=== PATIENT | female | born 1990 | race Caucasian/White ===

== ENCOUNTER 2021-12-02 16:41 | Outpatient (REF) | payer OTHER, SELFPAY | END 2021-12-02 16:42 | disposition home or self-care (01) | LOC: HO.LNP 16:41 | PROVIDERS: Visit Provider Internal Medicine | DX: N30.90 Cystitis, unspecified without hematuria (principal) | CPT/HCPCS: 87086; 87088; 87186 ==

== ENCOUNTER 2022-02-20 18:59 | Emergency (ER) | payer OTHER, SELFPAY ==
--- NOTE | ~2022-02-20 | XR_ITS ---
EXAMINATION: XR CHEST CLINICAL INFORMATION: Chest pain COMPARISON: CT chest 10/12/2011 TECHNIQUE: Frontal view of the chest was obtained. FINDINGS: No significant abnormality is noted involving the heart, lungs, mediastinum, bony thorax or soft tissues. XR/XR chest 1V IMPRESSION: Unremarkable examination.
[2022-02-20 19:15] VITALS: BP 126/82; BP 131/80; PULSE 107; PULSE 90; RESP 22; TEMP 36.8; O2SAT 99; BMI 23.3
[2022-02-20 19:21] VITALS: BP 131/80; PULSE 97; RESP 17; TEMP 36.8; O2SAT 99
--- NOTE | 2022-02-20 19:26 | ECG_ITS ---
Test Reason : cp Blood Pressure : / mmHG Vent. Rate : 088 BPM Atrial Rate : 088 BPM P-R Int : 144 ms QRS Dur : 090 ms QT Int : 380 ms P-R-T Axes : 063 062 062 degrees QTc Int : 459 ms Normal sinus rhythm Normal ECG When compared with ECG of 12-OCT-2011 20:59, Vent. rate has decreased BY 45 BPM Referred By: Elbert Ramos Electronically Signed By:ROOPA GASTON MD
--- NOTE | 2022-02-20 19:28 | ED_ITS ---
HPI - General Adult General Chief complaint: Dizziness Stated complaint: ANXIETY Time Seen by Provider: 02/20/22 19:20 Source: patient and EMS Mode of arrival: EMS Limitations: no limitations History of Present Illness HPI narrative: 31-year-old female history of anxiety presented for evaluation of chest pain. Patient was shopping while walking around in the store started feel lightheadedness, left-sided chest tightness, difficulty breathing, and palpitation. Symptoms started suddenly, lasted for about 30 minutes, no radiation of the chest tightness, no recent travel, no lower extremity swelling or tenderness. Patient had episode of anxiety in the past presented with similar symptoms but shorter duration, patient feels stressed out due to a divorce process she is going through now, patient declined SI or HI or hallucination. Related Data Previous Rx's Medication Instructions Recorded escitalopram oxalate 10 mg tablet 10 mg PO DAILY #90 tabs 11/26/20 nitrofurantoin 100 mg PO Q12H 3 days #6 caps 12/06/21 monohydrate/macrocrystals 100 mg capsule (Macrobid) Allergies Allergy/AdvReac Type Severity Reaction Status Date / Time No Known Allergies Allergy Verified 12/02/21 10:27 Review of Systems Review of Systems: All other systems are reviewed and are negative Constitutional: Reports as per HPI and Reports no additional constitutional complaints Eyes: Reports as per HPI and Reports no additional eye complaints Reports system reviewed and no additional complaints, except as documented Cardiovascular: Reports as per HPI and Reports no additional cardiovascular complaints Respiratory: Reports as per HPI and Reports no additional respiratory complaints Gastrointestinal: Reports as per HPI and Reports no additional gastrointestinal complaints Genitourinary: Reports no additional female genitourinary complaints Musculoskeletal: Reports no additional musculoskeletal complaints Skin/Breast: Reports system reviewed and no additional complaints, except as docu Psychiatric: Reports no additional psychiatric complaints Endocrine: Reports no additional endocrine complaints Hematologic/Lymphatic: Reports no additional hematologic/lymphatic complaints Allergic/Immunologic: Reports no additional allergic/immunologic complaints Reports system reviewed and no additional complaints, except as documented and Reports Abnormal speech present [facility] Past Medical History Medical History ADHD, predominantly inattentive type Generalized anxiety disorder Hx of iron deficiency anemia 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 Surgical History No pertinent past surgical history Family History Family History Father Substance use disorder Daughter ADHD Social History Social History Housing: House Alcohol intake: current Alcohol intake frequency: a few times a month Patient Tobacco Use Status: Former Tobacco user Years Smoked: 15 yrs Second Hand Smoke Exposure: No Use of substances other than those prescribed or required for medical reasons: No Advance Directives: No Patient : No service: No Current occupational status: employed Physical Exam ED Vital Signs: Vital Signs - 24 hr 02/20/22 19:15 02/20/22 19:21 02/20/22 23:03 Temperature 98.2 F 98.2 F Pulse Rate 90 97 73 Respiratory Rate 22 H 17 14 Blood Pressure 131/80 131/80 110/67 Pulse Oximetry 99 99 98 Oxygen Delivery Method Room Air Room Air Room Air BMI result Body Mass Index 23.3 Vital signs have been reviewed as appeared to be correct. Blood pressure normal. Heart rate normal. Respiration rate normal. Temperature normal. Oxygen saturation normal. Appearance: Alert. Oriented X3. No acute distress. Anxious. Head: Normal external exam. Normocephalic. Atraumatic. No Robles signs noted. No raccoon eyes noted Eyes: PERRLA. EOMI. Conjunctiva and sclera normal. Eyelids normal. ENT: TM's Normal. Pharynx normal. Uvula midline. Moist mucous membranes. No trismus noted. No drooling noted. No muffled voice noted. Neck: Normal inspection. Neck supple. FROM. No adenopathy. Thyroid Normal. No meningeal signs. No neck mass noted. CVS: Normal heart rate and rhythm. Heart sound normal. No murmurs noted. Pulses normal throughout. Respiratory: No respiratory distress. Painless inspiration. Breath sounds normal. No wheezes/rales/rhonchi noted. Chest nontender. No accessory muscle usage noted or decreased air movement noted. Abdomen: Soft and nontender. Bowel sounds normal in all 4 quadrants. No distention noted. No organomegaly noted. No visible injury noted. Back: No CVA tenderness. Full range of motion noted. Skin: Skin warm and dry. Normal skin color. Normal skin turgor. No rashes/lesions/lacerations noted. Extremities: No lower extremity edema. Extremities exhibit normal range of motion. Extremities nontender. Neuro: Oriented X 3. Cranial nerve exam: II-XII are grossly intact No motor deficit. No sensory deficit. Reflexes normal. Course Course Course Narrative: 31-year-old female with history of anxiety presented with feeling palpitation and chest tightness, patient has unremarkable exam, patient declined SI or HI, patient with HEART score of 0, patient with low risk of DVT or PE with negative D-dimer. Patient was instructed to follow-up with her PCP was already prescribed her Lexapro the patient has not used it yet. Medical Decision Making Lab Data Lab results reviewed: Yes I reviewed the patient's lab results. Result diagrams: 02/20/22 19:34 02/20/22 19:34 Labs: Lab Results 02/20/22 02/20/22 02/20/22 Range/Units 19:34 19:34 19:34 WBC 6.1 (4.8-10.8) X10*3/uL RBC 4.36 (4.20-5.50) X10*6/uL Hgb 12.1 (12.0-16.0) g/dl Hct 36.6 L (37.0-47.0) % MCV 83.9 (80.0-98.0) fL MCH 27.8 (27.0-33.0) pg MCHC 33.1 (31.0-35.0) g/dl RDW 13.2 (11.0-16.0) % Plt Count 330 (160-400) X10*3/uL MPV 9.7 (9.4-12.3) fL Immature Gran % (Auto) 0.3 (0.0-0.4) % Neut % (Auto) 65.4 (45-73) % Lymph % (Auto) 24.9 (20-40) % [place] % (Auto) 6.9 (2-11) % Eos % (Auto) 1.8 (0-4) % Baso % (Auto) 0.7 (0-2) % Lymph # (Auto) 1.5 (1.2-4.9) X10*3/uL [place] # (Auto) 0.4 (0.1-1.2) X10*3/uL Eos # (Auto) 0.1 (0.0-0.4) X10*3/uL Baso # (Auto) 0.0 (0.0-0.2) X10*3/uL Abs Immat Gran (auto) 0.02 (0.00-0.03) X10*3/uL Absolute Neuts (auto) 4.0 (2.0-8.3) x10*3/uL Absolute Nucleated RBC 0.000 (0.0-0.012) X10*3/uL Nucleated RBC % (auto) 0.0 (0.0-0.2) /100WBC D-Dimer High Sensitivty NG/ML Sodium 142 (135-145) mmol/L Potassium 3.8 (3.3-5.1) mmol/L Chloride 106 (96-108) mmol/L Carbon Dioxide 24 (22-29) mmol/L Anion Gap 16 (12-20) BUN 10 (9-16) mg/dL Creatinine 0.77 (0.5-1.4) mg/dL Estim Creat Clear Calc 94.4 Estimated GFR > 60 Random Glucose 92 (60-115) mg/dL Calcium 9.7 (8.4-10.2) mg/dL Total Bilirubin 0.4 (0.0-1.0) mg/dL Direct Bilirubin 0.2 (0.0-0.5) mg/dL AST 13 (5-31) U/L ALT 9 (0-31) U/L Alkaline Phosphatase 55 (39-117) U/L Troponin I High Sens < 3.5 (<3.5-17.0) ng/L Total Protein 7.1 (6.5-8.0) g/dL Albumin 4.6 (3.5-5.0) g/dL Lipase 34 (8-78) U/L Urine Color Urine Appearance Urine pH (5.0-9.0) Ur Specific [place] (1.005-1.025) Urine Protein (Neg-Trace) mg/dL Urine Glucose (UA) (Negative) mg/dL Urine Ketones (Negative) mg/dL Urine Blood (Negative) Urine Nitrite (Negative) Ur Leukocyte Esterase (Negative) Urine Test (NEGATIVE) 02/20/22 02/20/22 02/20/22 Range/Units 19:34 22:30 22:30 WBC (4.8-10.8) X10*3/uL RBC (4.20-5.50) X10*6/uL Hgb (12.0-16.0) g/dl Hct (37.0-47.0) % MCV (80.0-98.0) fL MCH (27.0-33.0) pg MCHC (31.0-35.0) g/dl RDW (11.0-16.0) % Plt Count (160-400) X10*3/uL MPV (9.4-12.3) fL Immature Gran % (Auto) (0.0-0.4) % Neut % (Auto) (45-73) % Lymph % (Auto) (20-40) % [place] % (Auto) (2-11) % Eos % (Auto) (0-4) % Baso % (Auto) (0-2) % Lymph # (Auto) (1.2-4.9) X10*3/uL [place] # (Auto) (0.1-1.2) X10*3/uL Eos # (Auto) (0.0-0.4) X10*3/uL Baso # (Auto) (0.0-0.2) X10*3/uL Abs Immat Gran (auto) (0.00-0.03) X10*3/uL Absolute Neuts (auto) (2.0-8.3) x10*3/uL Absolute Nucleated RBC (0.0-0.012) X10*3/uL Nucleated RBC % (auto) (0.0-0.2) /100WBC D-Dimer High Sensitivty < 150 NG/ML Sodium (135-145) mmol/L Potassium (3.3-5.1) mmol/L Chloride (96-108) mmol/L Carbon Dioxide (22-29) mmol/L Anion Gap (12-20) BUN (9-16) mg/dL Creatinine (0.5-1.4) mg/dL Estim Creat Clear Calc Estimated GFR Random Glucose (60-115) mg/dL Calcium (8.4-10.2) mg/dL Total Bilirubin (0.0-1.0) mg/dL Direct Bilirubin (0.0-0.5) mg/dL AST (5-31) U/L ALT (0-31) U/L Alkaline Phosphatase (39-117) U/L Troponin I High Sens < 3.5 (<3.5-17.0) ng/L Total Protein (6.5-8.0) g/dL Albumin (3.5-5.0) g/dL Lipase (8-78) U/L Urine Color Yellow Urine Appearance Clear Urine pH 6.0 (5.0-9.0) Ur Specific [place] <= 1.005 (1.005-1.025) Urine Protein Negative (Neg-Trace) mg/dL Urine Glucose (UA) Negative (Negative) mg/dL Urine Ketones 40 (Negative) mg/dL Urine Blood Small (1+) H (Negative) Urine Nitrite Negative (Negative) Ur Leukocyte Esterase Negative (Negative) Urine Test (NEGATIVE) 02/20/22 Range/Units 22:30 WBC (4.8-10.8) X10*3/uL RBC (4.20-5.50) X10*6/uL Hgb (12.0-16.0) g/dl Hct (37.0-47.0) % MCV (80.0-98.0) fL MCH (27.0-33.0) pg MCHC (31.0-35.0) g/dl RDW (11.0-16.0) % Plt Count (160-400) X10*3/uL MPV (9.4-12.3) fL Immature Gran % (Auto) (0.0-0.4) % Neut % (Auto) (45-73) % Lymph % (Auto) (20-40) % [place] % (Auto) (2-11) % Eos % (Auto) (0-4) % Baso % (Auto) (0-2) % Lymph # (Auto) (1.2-4.9) X10*3/uL [place] # (Auto) (0.1-1.2) X10*3/uL Eos # (Auto) (0.0-0.4) X10*3/uL Baso # (Auto) (0.0-0.2) X10*3/uL Abs Immat Gran (auto) (0.00-0.03) X10*3/uL Absolute Neuts (auto) (2.0-8.3) x10*3/uL Absolute Nucleated RBC (0.0-0.012) X10*3/uL Nucleated RBC % (auto) (0.0-0.2) /100WBC D-Dimer High Sensitivty NG/ML Sodium (135-145) mmol/L Potassium (3.3-5.1) mmol/L Chloride (96-108) mmol/L Carbon Dioxide (22-29) mmol/L Anion Gap (12-20) BUN (9-16) mg/dL Creatinine (0.5-1.4) mg/dL Estim Creat Clear Calc Estimated GFR Random Glucose (60-115) mg/dL Calcium (8.4-10.2) mg/dL Total Bilirubin (0.0-1.0) mg/dL Direct Bilirubin (0.0-0.5) mg/dL AST (5-31) U/L ALT (0-31) U/L Alkaline Phosphatase (39-117) U/L Troponin I High Sens (<3.5-17.0) ng/L Total Protein (6.5-8.0) g/dL Albumin (3.5-5.0) g/dL Lipase (8-78) U/L Urine Color Urine Appearance Urine pH (5.0-9.0) Ur Specific [place] (1.005-1.025) Urine Protein (Neg-Trace) mg/dL Urine Glucose (UA) (Negative) mg/dL Urine Ketones (Negative) mg/dL Urine Blood (Negative) Urine Nitrite (Negative) Ur Leukocyte Esterase (Negative) Urine Test NEGATIVE (NEGATIVE) Imaging Data Chest x-ray: Attestation: I personally reviewed and interpreted this imaging study as follows: Radiologist's impression: Unremarkable examination ECG Data Attestation: I personally reviewed and interpreted this ECG as follows: Interpretation: Normal sinus rhythm at 88 beats per minute, normal intervals, no ST-T changes. Discharge Plan Discharge Clinical Impression: Anxiety Patient Disposition: Home, Self-Care Instructions: Anxiety (ED) Prescriptions: No Action escitalopram oxalate 10 mg tablet 10 mg PO DAILY Qty: 90 0RF nitrofurantoin monohyd/m-cryst [Macrobid] 100 mg capsule 100 mg PO Q12H 3 Days Qty: 6 0RF Rx Instructions: must administer with a meal/food Referrals: Afsaneh Coughlin MD [Primary Care Provider] -
[2022-02-20 19:48] LABS: MANUAL DIFF FLAG NO
[2022-02-20 19:49] LABS: Basophils Percent Auto 0.7 % (0-2); Eosinophils Absolute Auto 0.1 X10*3/uL (0.0-0.4); Eosinophils Percent Auto 1.8 % (0-4); Hematocrit 36.6 % (37.0-47.0); Hemoglobin 12.1 g/dl (12.0-16.0); Imm Gran Abs Auto 0.02 X10*3/uL (0.00-0.03); Imm Gran Pct Auto 0.3 % (0.0-0.4); Lymphocytes Absolute Auto 1.5 X10*3/uL (1.2-4.9); Lymphocytes Percent Auto 24.9 % (20-40); Mean Corpuscular HGB Conc 33.1 g/dl (31.0-35.0); Mean Corpuscular Hemoglobin 27.8 pg (27.0-33.0); Mean Corpuscular Volume 83.9 fL (80.0-98.0); Mean Platelet Volume 9.7 fL (9.4-12.3); Monocytes Absolute Auto 0.4 X10*3/uL (0.1-1.2); Monocytes Percent Auto 6.9 % (2-11); Neutrophils Percent Auto 65.4 % (45-73); Platelet Count 330 X10*3/uL (160-400); Red Blood Count 4.36 X10*6/uL (4.20-5.50); Red Cell Distribution Width 13.2 % (11.0-16.0); White Blood Count 6.1 X10*3/uL (4.8-10.8)
[2022-02-20] MEDS: 0.9 % Sodium Chloride 1,000 ML 999 ML IV (20:02)
[2022-02-20 20:10] LABS: D Dimer High Sensitivity < 150 NG/ML
[2022-02-20 20:11] LABS: Alanine Aminotransferase 9 U/L (0-31); Albumin Level 4.6 g/dL (3.5-5.0); Alkaline Phosphatase 55 U/L (39-117); Anion Gap 16 (12-20); Aspartate Amino Transferase 13 U/L (5-31); Bilirubin Direct 0.2 mg/dL (0.0-0.5); Bilirubin Total 0.4 mg/dL (0.0-1.0); Blood Urea Nitrogen 10 mg/dL (9-16); Calcium 9.7 mg/dL (8.4-10.2); Carbon Dioxide 24 mmol/L (22-29); Chloride 106 mmol/L (96-108); Creatinine Clr Calc Pharmacy 94.4; Estimated Glomerular Filt Rate > 60; Glucose Random 92 mg/dL (60-115); Lipase 34 U/L (8-78); Potassium 3.8 mmol/L (3.3-5.1); Sodium 142 mmol/L (135-145); Total Protein 7.1 g/dL (6.5-8.0)
[2022-02-20 20:17] LABS: Troponin-I High Sensitivity < 3.5 ng/L (<3.5-17.0)
[2022-02-20 22:39] LABS: Appearance Urine Clear; Color Urine Yellow; Glucose Urine UA Negative (Negative); Leukocyte Esterase Urine Negative (Negative); Nitrite Urine Negative (Negative); Specific Gravity - Urine <= 1.005 (1.005-1.025); UMIC TRIGGER UACC YES; Urine Blood Small (1+) (Negative); Urine Ketones 40 mg/dL (Negative); Urine Protein Negative (Neg-Trace)
[2022-02-20 22:41] LABS: UPreg QC Valid YES; Urine Pregnancy NEGATIVE (NEGATIVE)
[2022-02-20 22:57] LABS: Troponin-I High Sensitivity < 3.5 ng/L (<3.5-17.0)
[2022-02-20 23:03] VITALS: BP 110/67; PULSE 73; RESP 14; O2SAT 98
[2022-02-20 23:07] LABS: Bacteria Urine None Seen (None Seen); Hyaline Casts Urine 0-2 /LPF (0-2); RBC Urine 0-2 /HPF (0-2); WBC Urine 0-5 /HPF (0-5)
== END 2022-02-20 23:21 | disposition home or self-care (01) ==
PROVIDERS: Emergency Provider Emergency Medicine; PCP Internal Medicine
DX: F41.9 Anxiety disorder, unspecified (principal); Z72.89 Other problems related to lifestyle; Z63.5 Disruption of family by separation and divorce
CPT/HCPCS: 36415; 71045; 80048; 80076; 81001; 81025; 83690; 84484; 85025; 85379; 93005; 96360; 96361; 99284; 99285

== ENCOUNTER 2023-07-05 22:24 | Emergency (ER) | payer MEDICAID, SELFPAY ==
[2023-07-05 22:30] VITALS: BP 111/80; PULSE 97; RESP 17; TEMP 36.7; O2SAT 99; BMI 25.7
[2023-07-05 22:50] LABS: MANUAL DIFF FLAG NO
[2023-07-05 22:51] LABS: Basophils Absolute Auto 0.1 X10*3/uL (0.0-0.2); Basophils Percent Auto 0.5 % (0-2); Eosinophils Absolute Auto 0.4 X10*3/uL (0.0-0.4); Eosinophils Percent Auto 3.8 % (0-4); Hematocrit 33.1 % (37.0-47.0); Hemoglobin 10.9 g/dl (12.0-16.0); Imm Gran Abs Auto 0.02 X10*3/uL (0.00-0.03); Imm Gran Pct Auto 0.2 % (0.0-0.4); Lymphocytes Absolute Auto 1.9 X10*3/uL (1.2-4.9); Lymphocytes Percent Auto 20.1 % (20-40); Mean Corpuscular HGB Conc 32.9 g/dl (31.0-35.0); Mean Corpuscular Hemoglobin 25.2 pg (27.0-33.0); Mean Corpuscular Volume 76.6 fL (80.0-98.0); Mean Platelet Volume 9.8 fL (9.4-12.3); Monocytes Absolute Auto 0.7 X10*3/uL (0.1-1.2); Monocytes Percent Auto 7.8 % (2-11); Neutrophils Absolute Auto 6.2 x10*3/uL (2.0-8.3); Neutrophils Percent Auto 67.6 % (45-73); Platelet Count 351 X10*3/uL (160-400); Red Blood Count 4.32 X10*6/uL (4.20-5.50); Red Cell Distribution Width 13.3 % (11.0-16.0); White Blood Count 9.2 X10*3/uL (4.8-10.8)
[2023-07-05 23:04] LABS: Appearance Urine Clear; Color Urine Yellow; Glucose Urine UA Negative (Negative); Leukocyte Esterase Urine Negative (Negative); Nitrite Urine Negative (Negative); PH 6.5 (5.0-9.0); UMIC TRIGGER UACC YES; Urine Blood Large (3+) (Negative); Urine Ketones Negative (Negative); Urine Protein Negative (Neg-Trace)
[2023-07-05 23:05] LABS: Alanine Aminotransferase 8 U/L (0-31); Albumin Level 4.2 g/dL (3.5-5.0); Alkaline Phosphatase 62 U/L (39-117); Anion Gap 12 (12-20); Aspartate Amino Transferase 16 U/L (5-31); Bilirubin Total 0.2 mg/dL (0.0-1.0); Blood Urea Nitrogen 9 mg/dL (9-16); Calcium 9.2 mg/dL (8.4-10.2); Carbon Dioxide 23 mmol/L (22-29); Chloride 109 mmol/L (96-108); Creatinine Clr Calc Pharmacy 108.9; Estimated Glomerular Filt Rate > 60; Glucose Random 99 mg/dL (60-115); Lipase 32 U/L (8-78); Potassium 3.7 mmol/L (3.3-5.1); Sodium 140 mmol/L (135-145); Total Protein 7.2 g/dL (6.5-8.0)
[2023-07-05 23:15] LABS: HCG Quantitative < 2 mIU/mL
[2023-07-05 23:19] LABS: Bacteria Urine None Seen (None Seen); Hyaline Casts Urine 0-2 /LPF (0-2); RBC Urine 0-2 /HPF (0-2); WBC Urine 0-5 /HPF (0-5)
== END 2023-07-06 00:49 | disposition left against medical advice (07) ==
PROVIDERS: Emergency Provider Emergency Medicine; PCP Internal Medicine
DX: R10.9 Unspecified abdominal pain (principal); Z79.899 Other long term (current) drug therapy
CPT/HCPCS: 36415; 80053; 81001; 81003; 83690; 84702; 85025; 99282; 99283

== ENCOUNTER 2023-07-09 20:22 | Emergency (ER) | payer MEDICAID, SELFPAY ==
[2023-07-09 20:41] VITALS: BP 122/78; PULSE 97; RESP 16; TEMP 36.6; O2SAT 100; BMI 26.6
[2023-07-09 21:25] LABS: MANUAL DIFF FLAG NO
[2023-07-09 21:27] LABS: Basophils Absolute Auto 0.1 X10*3/uL (0.0-0.2); Basophils Percent Auto 0.6 % (0-2); Eosinophils Absolute Auto 0.3 X10*3/uL (0.0-0.4); Eosinophils Percent Auto 3.4 % (0-4); Hematocrit 32.2 % (37.0-47.0); Hemoglobin 10.5 g/dl (12.0-16.0); Imm Gran Abs Auto 0.03 X10*3/uL (0.00-0.03); Imm Gran Pct Auto 0.4 % (0.0-0.4); Lymphocytes Absolute Auto 1.7 X10*3/uL (1.2-4.9); Lymphocytes Percent Auto 20.9 % (20-40); Mean Corpuscular HGB Conc 32.6 g/dl (31.0-35.0); Mean Corpuscular Hemoglobin 25.2 pg (27.0-33.0); Mean Corpuscular Volume 77.4 fL (80.0-98.0); Mean Platelet Volume 9.7 fL (9.4-12.3); Monocytes Absolute Auto 0.5 X10*3/uL (0.1-1.2); Monocytes Percent Auto 6.3 % (2-11); Neutrophils Absolute Auto 5.6 x10*3/uL (2.0-8.3); Neutrophils Percent Auto 68.4 % (45-73); Platelet Count 335 X10*3/uL (160-400); Red Blood Count 4.16 X10*6/uL (4.20-5.50); Red Cell Distribution Width 13.3 % (11.0-16.0); White Blood Count 8.2 X10*3/uL (4.8-10.8)
[2023-07-09 21:28] LABS: Appearance Urine Clear; Color Urine Yellow; Glucose Urine UA Negative (Negative); Leukocyte Esterase Urine Negative (Negative); Nitrite Urine Negative (Negative); PH 6.5 (5.0-9.0); UMIC TRIGGER UACC YES; Urine Blood Moderate (2+) (Negative); Urine Ketones Negative (Negative); Urine Protein Negative (Neg-Trace)
[2023-07-09 21:29] LABS: UPreg QC Valid YES; Urine Pregnancy NEGATIVE (NEGATIVE)
[2023-07-09 21:38] LABS: Bacteria Urine None Seen (None Seen); Hyaline Casts Urine 0-2 /LPF (0-2); RBC Urine 0-2 /HPF (0-2); WBC Urine 0-5 /HPF (0-5)
[2023-07-09 21:43] LABS: Alanine Aminotransferase 9 U/L (0-31); Albumin Level 4.3 g/dL (3.5-5.0); Alkaline Phosphatase 63 U/L (39-117); Anion Gap 11 (12-20); Aspartate Amino Transferase 14 U/L (5-31); Bilirubin Total 0.2 mg/dL (0.0-1.0); Blood Urea Nitrogen 9 mg/dL (9-16); Calcium 9.3 mg/dL (8.4-10.2); Carbon Dioxide 25 mmol/L (22-29); Chloride 108 mmol/L (96-108); Creatinine Clr Calc Pharmacy 95.2; Estimated Glomerular Filt Rate > 60; Glucose Random 84 mg/dL (60-115); Lipase 30 U/L (8-78); Potassium 3.6 mmol/L (3.3-5.1); Sodium 140 mmol/L (135-145); Total Protein 7.1 g/dL (6.5-8.0)
--- NOTE | 2023-07-09 22:56 | ED.ABDPAIN ---
HPI - Abdominal Pain General Chief Complaint: Abdominal Pain Stated Complaint: abdominal pain Time Seen by Provider: 07/09/23 22:35 Source: patient Mode of arrival: ambulatory History of Present Illness HPI narrative: 33-year-old female with presentation for intermittent epigastric discomfort that is very sharp and intense at times with radiation into her back and has been associated with nausea, she states that she had been unable to have a bowel movement for 3 days but did have a BM today and states that she suffers from constipation, otherwise she has no significant past medical history, is on Depo-Medrol for control. Otherwise, she denies any fevers or chills. Related Data Previous Rx's Medication Instructions Recorded nitrofurantoin 100 mg PO Q12H 3 days #6 caps 12/06/21 monohydrate/macrocrystals 100 mg capsule (Macrobid) escitalopram oxalate 10 mg tablet 10 mg PO DAILY #90 tabs 02/22/22 omeprazole 40 mg capsule,delayed 40 mg PO DAILY #30 caps 07/09/23 release Allergies Allergy/AdvReac Type Severity Reaction Status Date / Time latex AdvReac Rash Verified 07/09/23 20:41 Review of Systems Review of Systems Pertinent positives and negatives as stated in HPI PMFSH Past Medical History Source: nursing notes reviewed Medical History Generalized anxiety disorder ADHD, 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 Hx of iron deficiency anemia Surgical History No pertinent past surgical history Family History Family History Father Substance use disorder Daughter ADHD Social History Social History Housing: House Alcohol intake: current Alcohol intake frequency: a few times a month Patient Tobacco Use Status: Former Tobacco user Years Smoked: 15 yrs Second Hand Smoke Exposure: No Advance Directives: No Advance Directives Information Provided: No service: No Current occupational status: employed Physical Exam ED Vital Signs: Vital Signs - 24 hr 07/09/23 20:41 Temperature 97.8 F Pulse Rate 97 Respiratory Rate 16 Blood Pressure 122/78 Pulse Oximetry 100 Oxygen Delivery Method Room Air BMI result Body Mass Index 26.6 VITAL SIGNS: Reviewed. GENERAL: Well developed, well nourished, in no acute distress. HEAD: Normocephalic/atraumatic EYES: PERRLA, EOMI EARS: Ext canals without abnormality, NOSE: Nares patent bilateral OROPHARYNX: no oral lesions noted, posterior pharynx clear NECK: Supple, no adenopathy LUNGS: Normal breath sounds. No adventitious sounds or accessory muscle use. SpO2<100> CARDIOVASCULAR: Regular rate and rhythm without noted murmurs ABDOMEN: Soft, non-tender, non-distended with bowel sounds. MUSCULOSKELETAL: No tenderness, deformities, or effusions noted on gross inspection. EXTREMITIES: No cyanosis, clubbing or edema. SKIN: Inspection of the skin reveals no rashes NEUROLOGIC: Alert and oriented x 4. Strength and sensation to light touch were grossly intact x 4. Medical Decision Making Medical Decision Making [facility] Narrative: 33-year-old female with history and clinical presentation, DDX: Gastritis, gastric ulcer, pancreatitis, constipation, low clinical suspicion for cholecystitis/SBO Reviewed all investigations and hematologic indices are chronically stable without leukocytosis there is a noted microcytic anemia or thrombocytopenia. Chemistry indices are negative for RICHARD/electrolytes/liver enzyme derangements and lipase is within normal limits. Urinalysis is negative for UTI and your is negative. Patient was offered analgesics as well as a GI cocktail and Carafate with good resolution of symptoms and she is otherwise discharged and my interpretation is it patient is experiencing gastritis with possible ulcer and is otherwise hemodynamically stable. Differential Diagnosis Differential Diagnoses: The differential diagnosis associated with the presentation includes Please see the discussion above Admission/Observation Consideration of admission/observation: Escalation of care including admission/observation considered Please see the discussion above Lab Data [facility] Lab Attestation statement: I reviewed the patient's lab results. 07/09/23 21:20 07/09/23 21:20 Labs: Lab Results 07/09/23 Range/Units 21:20 WBC 8.2 (4.8-10.8) X10*3/uL RBC 4.16 L (4.20-5.50) X10*6/uL Hgb 10.5 L (12.0-16.0) g/dl Hct 32.2 L (37.0-47.0) % MCV 77.4 L (80.0-98.0) fL MCH 25.2 L (27.0-33.0) pg MCHC 32.6 (31.0-35.0) g/dl RDW 13.3 (11.0-16.0) % Plt Count 335 (160-400) X10*3/uL MPV 9.7 (9.4-12.3) fL Immature Gran % (Auto) 0.4 (0.0-0.4) % Neut % (Auto) 68.4 (45-73) % Lymph % (Auto) 20.9 (20-40) % [place] % (Auto) 6.3 (2-11) % Eos % (Auto) 3.4 (0-4) % Baso % (Auto) 0.6 (0-2) % Lymph # (Auto) 1.7 (1.2-4.9) X10*3/uL [place] # (Auto) 0.5 (0.1-1.2) X10*3/uL Eos # (Auto) 0.3 (0.0-0.4) X10*3/uL Baso # (Auto) 0.1 (0.0-0.2) X10*3/uL Abs Immat Gran (auto) 0.03 (0.00-0.03) X10*3/uL Absolute Neuts (auto) 5.6 (2.0-8.3) x10*3/uL Absolute Nucleated RBC 0.000 (0.0-0.012) X10*3/uL Nucleated RBC % (auto) 0.0 (0.0-0.2) /100WBC Sodium 140 (135-145) mmol/L Potassium 3.6 (3.3-5.1) mmol/L Chloride 108 (96-108) mmol/L Carbon Dioxide 25 (22-29) mmol/L Anion Gap 11 L (12-20) BUN 9 (9-16) mg/dL Creatinine 0.83 (0.5-1.4) mg/dL Estim Creat Clear Calc 95.2 Estimated GFR > 60 Random Glucose 84 (60-115) mg/dL Calcium 9.3 (8.4-10.2) mg/dL Total Bilirubin 0.2 (0.0-1.0) mg/dL AST 14 (5-31) U/L ALT 9 (0-31) U/L Alkaline Phosphatase 63 (39-117) U/L Total Protein 7.1 (6.5-8.0) g/dL Albumin 4.3 (3.5-5.0) g/dL Lipase 30 (8-78) U/L Urine Color Yellow Urine Appearance Clear Urine pH 6.5 (5.0-9.0) Ur Specific [place] 1.010 (1.005-1.025) Urine Protein Negative (Neg-Trace) mg/dL Urine Glucose (UA) Negative (Negative) mg/dL Urine Ketones Negative (Negative) mg/dL Urine Blood Moderate (2+) H (Negative) Urine Nitrite Negative (Negative) Ur Leukocyte Esterase Negative (Negative) Urine RBC 0-2 (0-2) /HPF Urine WBC 0-5 (0-5) /HPF Ur Squamous Epith Cells 6-10 (0-2) /HPF Urine Bacteria None Seen (None Seen) Hyaline Casts 0-2 (0-2) /LPF Urine Test NEGATIVE (NEGATIVE) External Record Review External record reviewed: Outpatient record and Prior outpatient labs Critical Care Time Critical Care Time Critical Care Time: Yes Total Critical Care Time: 30 Attestation: I personally attest to this time spent taking care of the patient. Discharge Plan Discharge Clinical Impression: Gastritis, Constipation Instructions: Gastritis (ED), Constipation (ED), High Fiber Diet (ED), Diet for Stomach Ulcers and Gastritis (ED) Additional Instructions: 1. I recommend increasing the amount of water intake, please review the dietary considerations recommended for your current stomach lining inflammation. 2. Recommend [id number] Colace for mild relief constipation. 3. Please follow-up with primary care doctor at your earliest convenience. Return to the ER for any worsening symptoms. Prescriptions: New omeprazole 40 mg capsule,delayed release(DR/EC) 40 mg PO DAILY Qty: 30 0RF No Action nitrofurantoin monohyd/m-cryst [Macrobid] 100 mg capsule 100 mg PO Q12H 3 Days Qty: 6 0RF Rx Instructions: must administer with a meal/food escitalopram oxalate 10 mg tablet 10 mg PO DAILY Qty: 90 0RF
== END 2023-07-09 23:30 | disposition left against medical advice (07) ==
PROVIDERS: Emergency Provider Student in an Organized Health Care Education/Training Program; PCP Internal Medicine
DX: K29.70 Gastritis, unspecified, without bleeding (principal); K59.00 Constipation, unspecified
CPT/HCPCS: 36415; 80053; 81001; 81025; 83690; 85025; 99282; 99283

== ENCOUNTER 2024-03-02 10:13 | Emergency (ER) | payer OTHER, SELFPAY ==
--- NOTE | ~2024-03-02 | CT_ITS ---
EXAMINATION: CT ABDOMEN AND PELVIS WITHOUT CONTRAST CLINICAL INFORMATION: Right flank pain evaluate for renal colic COMPARISON: None available. TECHNIQUE: Multidetector volumetric imaging was performed from the superior aspect of the liver through the pubic symphysis. Sagittal and coronal reformatted images were obtained on the technologist's workstation. This CT examination was performed using dose optimization techniques as appropriate, variously including the following: *Automated exposure control *Adjustment of mA and/or kV according to patient size (this includes techniques or standardized protocols for targeted exams where dose is matched to indication/reason for exam; i.e. extremities or head) *Use of iterative reconstruction technique DLP: 501 mGy-cm FINDINGS: LUNG BASES: No pneumothorax. No large pleural effusion. LIVER, GALLBLADDER, AND BILIARY TREE: The liver is normal in size, shape, and attenuation. Hypodense focus posterior aspect right hepatic lobe measuring 8 mm statistically representing cysts though incompletely evaluated. No focal hepatic lesion or biliary ductal dilatation is present. The gallbladder is surgically absent. PANCREAS: Unremarkable. SPLEEN: Unremarkable. ADRENAL GLANDS: Unremarkable. KIDNEYS AND URETERS: The kidneys are normal in size, shape, and attenuation. No hydronephrosis, hydroureter, or calculi seen. No perinephric stranding. BLADDER: Unremarkable. GASTROINTESTINAL TRACT: The small and large bowel are unremarkable. The appendix is not definitively visualized. ABDOMINAL WALL: No significant hernia is appreciated. LYMPH NODES: No enlarged lymph nodes for size criteria. VASCULAR: Abdominal aorta is nonaneurysmal. PELVIC VISCERA: Anteverted uterus. Bilateral adnexal/ovarian hypodense foci the largest on the left measuring 2.3 cm. Findings are overwhelmingly likely to represent a normal ovarian follicle. No follow-up imaging recommended. OSSEOUS STRUCTURES: Unremarkable. CT/CT abdomen pelvis wo IV con IMPRESSION: 1. No acute process of the abdomen or pelvis identified. 2. Hypodense focus posterior aspect right hepatic lobe measuring 8 mm statistically representing cyst though incompletely evaluated. 3. Status post cholecystectomy. Electronically signed by: Isabella Thorpe MD 03/02/2024 12:23 PM [facility]
[2024-03-02 10:18] VITALS: BP 122/78; PULSE 92; RESP 16; TEMP 36.8; O2SAT 99; BMI 27.3
[2024-03-02 10:38] LABS: Appearance Urine Clear; Color Urine Yellow; Glucose Urine UA Negative (Negative); Leukocyte Esterase Urine Negative (Negative); Nitrite Urine Negative (Negative); Specific Gravity - Urine <= 1.005 (1.005-1.025); Urine Blood Negative (Negative); Urine Ketones Negative (Negative); Urine Protein Negative (Neg-Trace)
[2024-03-02 10:39] LABS: UPreg QC Valid YES; Urine Pregnancy NEGATIVE (NEGATIVE)
--- NOTE | 2024-03-02 11:13 | ED_ITS ---
HPI - Female Genitourinary General Chief complaint: Urogenital-Female Stated complaint: back pain quest uti Time Seen by Provider: 03/02/24 10:55 Source: patient and family Mode of arrival: ambulatory Limitations: no limitations History of Present Illness ED Provider: Kimberly Pal APRN HPI Narrative: 33 yo female with history of hashimotos here with complaints of dysuria, right flank pain. Patient reports on February 20 she started to have dysuria. She went to a walk-in clinic and was prescribed 5 days of Macrobid. She completed the course of the medication and [facility] she reported continued symptoms. She tells me that they did do a urine there and told her that she had a mild urinary infection and put her on 3 days of Bactrim. She took her last dose this morning. She reports continued discomfort. She denies any pelvic pain, vomiting, fever, vaginal discharge, vaginal rashes. No new sexual partners. No concern for STI. Her period is irregular secondary to Depo. Last evening she developed right flank pain. There is no radiation of pain. There is no associated abdominal pain. Related Data Previous Rx's ?Medication ?Instructions ?Recorded nitrofurantoin 100 mg PO Q12H 3 days #6 caps 12/06/21 monohydrate/macrocrystals 100 mg capsule (Macrobid) escitalopram oxalate 10 mg tablet 10 mg PO DAILY #90 tabs 02/22/22 omeprazole 40 mg capsule,delayed 40 mg PO DAILY #30 caps 07/09/23 release phenazopyridine 200 mg tablet 200 mg PO TID PRN pain #6 tabs 03/02/24 (Pyridium) Allergies Allergy/AdvReac Type Severity Reaction Status Date / Time latex AdvReac Rash Verified 03/02/24 10:20 Review of Systems 2 Review of Systems: Yes all other systems are reviewed and are negative Constitutional: Constitutional: Reports no additional constitutional complaints, Denies body ache(s), Denies chills, Denies fever(s), Denies headache(s) and Denies weakness Eyes: Eyes: Reports no additional eye complaints and Denies change in vision ENT: Reports system reviewed and no additional complaints, except as documented, Denies dizziness, Denies headache(s), Denies nasal congestion, Denies nasal discharge and Denies neck pain Cardiovascular: Cardiovascular: Reports no additional cardiovascular complaints, Denies chest pain, Denies leg edema and Denies dyspnea Respiratory: Respiratory: Reports no additional respiratory complaints, Denies cough and Denies dyspnea Gastrointestinal: Gastrointestinal: Reports no additional gastrointestinal complaints, Denies abdominal pain, Denies diarrhea, Denies nausea and Denies vomiting Genitourinary: Genitourinary: Reports no additional female genitourinary complaints, Reports dysuria, Denies pelvic pain, Reports flank pain, Denies urinary incontinence, Denies urinary hesitancy, Denies urinary urgency and Denies vaginal discharge Musculoskeletal: Musculoskeletal: Reports no additional musculoskeletal complaints, Denies back pain, Denies arthralgias, Denies joint swelling, Denies neck pain, Denies numbness and Denies tingling Integumentary/Breasts: Skin/Breast: Reports system reviewed and no additional complaints, except as docu and Denies rash Neurologic: Reports system reviewed and no additional complaints, except as documented, Denies Abnormal speech present, Denies dizziness, Denies headache(s), Denies numbness, Denies tingling and Denies weakness PMFSH Past Medical History Attestation statement: The following information was validated with the patient. 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 Hx of iron deficiency anemia Surgical History No pertinent past surgical history Family History Family History Father Substance use disorder Daughter ADHD Social History Social History Housing: House Unable to assess alcohol history related to: Unknown Alcohol intake: current Alcohol intake frequency: a few times a month Patient Tobacco Use Status: Former Tobacco user Years Smoked: 15 yrs Second Hand Smoke Exposure: No Use of substances other than those prescribed or required for medical reasons: Unknown Advance Directives: No Advance Directives Information Provided: Yes service: No Current occupational status: employed Physical Exam 2 Vital Signs: Vital Signs: Last Vital Signs Temp 98.3 F 03/02/24 12:56 Pulse 92 03/02/24 12:56 Resp 16 03/02/24 12:56 BP 122/78 03/02/24 12:56 Pulse Ox 99 03/02/24 12:56 O2 Del Method Room Air 03/02/24 12:56 BMI result Body Mass Index 27.3 Const: General: cooperative, healthy appearing, comfortable and no acute distress Orientation/consciousness: patient oriented x3 Limitations: no limitations HEENT: Head: Yes normal to inspection Ears: hearing grossly normal bilaterally General nose exam: Normal external nose present Face and sinus: Yes normal facial exam Mouth: Normal oral and palatal mucosa present Throat: Yes posterior oropharynx normal Eyes: General: appearance normal, both eyes and all related structures P upils: Equal, round and reactive pupils present Neck: Neck: Yes normal visual inspection Chest: Chest palpation & inspection: normal inspection of the chest Resp: Effort & Inspection: normal respiratory effort Auscultation: clear to auscultation bilaterally Cardio: Rate: regular rate Rhythm: regular rhythm Peripheral pulses: P eripheral pulses 2+ throughout GI: Inspection: Yes normal to inspection Palpation (GI): Soft to palpation and nontender Auscultation: normal bowel sounds : Other: Adalisha mechanical technician present General: Yes CVA tenderness (R CVAT) External Female Exam: normal external appearance Speculum Exam - Vagina: normal appearance of the vagina Speculum Exam - Cervix: normal appearance of the cervix Back/Spine/Pelvis: Back: CVA tenderness (R CVAT) Thoracic/Lumbar Spine: t horacic and lumbar spine normal to inspection Skin: General skin exam: no rashes or lesions noted Neuro: General: patient oriented x3, no focal motor deficits and normal sensation to monofilament Cranial nerves: Yes Equal, round and reactive pupils present Cognition (Neuro): normal cognition Speech: No Abnormal speech present Gait exam (Neuro): Normal gait present Motor exam (neuro): 5/5 motor strength present throughout Extrem: General: Yes normal to inspection Course Course Course Narrative: CT is unremarkable. Labs are unremarkable. UA shows no signs of infection. Pelvic exam is benign. Patient may have some cystitis as she has had this recurrently before. It did recommend some Pyridium p.r.n. and follow-up with her primary care doctor. Her flank pain may be muscular. Reviewed worrisome signs and symptoms of when to return to the emergency room. Comfortable plan for discharge home. Medical Decision Making Medical Decision Making [facility] Narrative: 33 yo female with history of hashimotos here with complaints of dysuria, right flank pain despite 2 courses of antibiotics. R CVAT on exam Will need labs, UA, ur preg, CT A/P, pelvic exam & STI testing Differential Diagnosis Differential Diagnoses: The differential diagnosis associated with the presentation includes Renal colic, pyelonephritis, UTI Low suspicion for ovarian torsion, PID Admission/Observation Consideration of admission/observation: Escalation of care including admission/observation considered see course of care Lab Data [facility] Lab Attestation statement: I reviewed the patient's lab results. 03/02/24 11:35 03/02/24 11:35 Labs: Lab Results 03/02/24 03/02/24 03/02/24 Range/Units 10:27 11:35 11:44 WBC 4.3 L (4.8-10.8) X10*3/uL RBC 4.27 (4.20-5.50) X10*6/uL Hgb 12.4 (12.0-16.0) g/dl Hct 36.2 L (37.0-47.0) % MCV 84.8 (80.0-98.0) fL MCH 29.0 (27.0-33.0) pg MCHC 34.3 (31.0-35.0) g/dl RDW 12.6 (11.0-16.0) % Plt Count 300 (160-400) X10*3/uL MPV 9.7 (9.4-12.3) fL Immature Gran % (Auto) 0.0 (0.0-0.4) % Neut % (Auto) 61.9 (45-73) % Lymph % (Auto) 27.3 (20-40) % [place] % (Auto) 8.3 (2-11) % Eos % (Auto) 1.8 (0-4) % Baso % (Auto) 0.7 (0-2) % Lymph # (Auto) 1.2 (1.2-4.9) X10*3/uL [place] # (Auto) 0.4 (0.1-1.2) X10*3/uL Eos # (Auto) 0.1 (0.0-0.4) X10*3/uL Baso # (Auto) 0.0 (0.0-0.2) X10*3/uL Abs Immat Gran (auto) 0.00 (0.00-0.03) X10*3/uL Absolute Neuts (auto) 2.7 (2.0-8.3) x10*3/uL Absolute Nucleated RBC 0.000 (0.0-0.012) X10*3/uL Nucleated RBC % (auto) 0.0 (0.0-0.2) /100WBC Sodium 141 (135-145) mmol/L Potassium 4.3 (3.3-5.1) mmol/L Chloride 112 H (96-108) mmol/L Carbon Dioxide 20 L (22-29) mmol/L Anion Gap 13 (12-20) BUN 6 L (9-16) mg/dL Creatinine 0.85 (0.5-1.4) mg/dL Estim Creat Clear Calc 94.1 Estimated GFR > 60 Random Glucose 84 (60-115) mg/dL Calcium 9.4 (8.4-10.2) mg/dL Urine Color Yellow Urine Appearance Clear Urine pH 7.0 (5.0-9.0) Ur Specific [place] <= 1.005 (1.005-1.025) Urine Protein Negative (Neg-Trace) mg/dL Urine Glucose (UA) Negative (Negative) mg/dL Urine Ketones Negative (Negative) mg/dL Urine Blood Negative (Negative) Urine Nitrite Negative (Negative) Ur Leukocyte Esterase Negative (Negative) Urine Test NEGATIVE (NEGATIVE) T. vaginalis (PCR) NOT DETECTED (Not Detect) Bact Vaginosis (PCR) NEGATIVE (Negative) C. krusei/glabrata (PCR) NOT DETECTED (Not Detect) Estrella group (PCR) NOT DETECTED (Not Detect) Independent Interpretation I performed an independent interpretation of an: CT Scan Interpretation: I independently reviewed the CT scan agree with the radiology report Radiology Impression Discussion of test interpretation with radiology: I have reviewed the radiologist's reading. Radiologist Impression: [address] [address] [address] Scan Report Signed Patient: Nimo Ignacio MR#: [id number] : 1990 Acct:[id number] Age/Sex: 33 / F ADM Date: 03/02/24 Loc: HO.ED Attending Dr: Ordering Physician: Kimberly Oquendo NP Date of Service: 03/02/24 Procedure(s): CT abdomen pelvis wo IV con Accession Number(s): [id number] cc: Afsaneh Coughlin MD; Kimberly Oquendo NP~ EXAMINATION: CT ABDOMEN AND PELVIS WITHOUT CONTRAST CLINICAL INFORMATION: Right flank pain evaluate for renal colic COMPARISON: None available. TECHNIQUE: Multidetector volumetric imaging was performed from the superior aspect of the liver through the pubic symphysis. Sagittal and coronal reformatted images were obtained on the technologist's workstation. This CT examination was performed using dose optimization techniques as appropriate, variously including the following: *Automated exposure control *Adjustment of mA and/or kV according to patient size (this includes techniques or standardized protocols for targeted exams where dose is matched to indication/reason for exam; i.e. extremities or head) *Use of iterative reconstruction technique DLP: 501 mGy-cm FINDINGS: LUNG BASES: No pneumothorax. No large pleural effusion. LIVER, GALLBLADDER, AND BILIARY TREE: The liver is normal in size, shape, and attenuation. Hypodense focus posterior aspect right hepatic lobe measuring 8 mm statistically representing cysts though incompletely evaluated. No focal hepatic lesion or biliary ductal dilatation is present. The gallbladder is surgically absent. PANCREAS: Unremarkable. SPLEEN: Unremarkable. ADRENAL GLANDS: Unremarkable. KIDNEYS AND URETERS: The kidneys are normal in size, shape, and attenuation. No hydronephrosis, hydroureter, or calculi seen. No perinephric stranding. BLADDER: Unremarkable. GASTROINTESTINAL TRACT: The small and large bowel are unremarkable. The appendix is not definitively visualized. ABDOMINAL WALL: No significant hernia is appreciated. LYMPH NODES: No enlarged lymph nodes for size criteria. VASCULAR: Abdominal aorta is nonaneurysmal. PELVIC VISCERA: Anteverted uterus. Bilateral adnexal/ovarian hypodense foci the largest on the left measuring 2.3 cm. Findings are overwhelmingly likely to represent a normal ovarian follicle. No follow-up imaging recommended. OSSEOUS STRUCTURES: Unremarkable. CT/CT abdomen pelvis wo IV con IMPRESSION: 1. No acute process of the abdomen or pelvis identified. 2. Hypodense focus posterior aspect right hepatic lobe measuring 8 mm statistically representing cyst though incompletely evaluated. 3. Status post cholecystectomy. Electronically signed by: Isabella Thorpe MD 03/02/2024 12:23 PM [facility] Independent Historian Clinical information obtained from an independent historian. History obtained from or confirmed by: Other (son) Discharge Plan Discharge Clinical Impression: Cystitis Patient Disposition: Home, Self-Care Instructions: Interstitial Cystitis (ED) Additional Instructions: Your CT scan was normal. Your urine shows no signs of infection. Your blood work is normal. Your testing for vaginal infections and STDs are all pending and we will call you if they are positive. Please avoid caffeinated beverages. Follow up with primary care doctor for any continued symptoms Prescriptions: New phenazopyridine [Pyridium] 200 mg tablet 200 mg PO TID PRN (Reason: pain) Qty: 6 0RF No Action nitrofurantoin monohyd/m-cryst [Macrobid] 100 mg capsule 100 mg PO Q12H 3 Days Qty: 6 0RF Rx Instructions: must administer with a meal/food escitalopram oxalate 10 mg tablet 10 mg PO DAILY Qty: 90 0RF omeprazole 40 mg capsule,delayed release(DR/EC) 40 mg PO DAILY Qty: 30 0RF Referrals: Afsaneh Coughlin MD [Primary Care Provider] - 1 week Interventions: ED Discharge Assessment Last Done: 03/02/24 12:56 Discharge Date/Time: 03/02/24 12:57 Print Language: Z[place]ian
[2024-03-02 11:40] LABS: MANUAL DIFF FLAG NO
[2024-03-02 11:41] LABS: Basophils Percent Auto 0.7 % (0-2); Eosinophils Absolute Auto 0.1 X10*3/uL (0.0-0.4); Eosinophils Percent Auto 1.8 % (0-4); Hematocrit 36.2 % (37.0-47.0); Hemoglobin 12.4 g/dl (12.0-16.0); Lymphocytes Absolute Auto 1.2 X10*3/uL (1.2-4.9); Lymphocytes Percent Auto 27.3 % (20-40); Mean Corpuscular HGB Conc 34.3 g/dl (31.0-35.0); Mean Corpuscular Volume 84.8 fL (80.0-98.0); Mean Platelet Volume 9.7 fL (9.4-12.3); Monocytes Absolute Auto 0.4 X10*3/uL (0.1-1.2); Monocytes Percent Auto 8.3 % (2-11); Neutrophils Absolute Auto 2.7 x10*3/uL (2.0-8.3); Neutrophils Percent Auto 61.9 % (45-73); Platelet Count 300 X10*3/uL (160-400); Red Blood Count 4.27 X10*6/uL (4.20-5.50); Red Cell Distribution Width 12.6 % (11.0-16.0); White Blood Count 4.3 X10*3/uL (4.8-10.8)
[2024-03-02 11:51] LABS: Anion Gap 13 (12-20); Blood Urea Nitrogen 6 mg/dL (9-16); Calcium 9.4 mg/dL (8.4-10.2); Carbon Dioxide 20 mmol/L (22-29); Chloride 112 mmol/L (96-108); Creatinine Clr Calc Pharmacy 94.1; Estimated Glomerular Filt Rate > 60; Glucose Random 84 mg/dL (60-115); Potassium 4.3 mmol/L (3.3-5.1); Sodium 141 mmol/L (135-145)
[2024-03-02 12:56] VITALS: BP 122/78; PULSE 92; RESP 16; TEMP 36.8; O2SAT 99
[2024-03-02 12:57] LABS: Bacterial Vaginosis PCR NEGATIVE (Negative); Candida Group PCR NOT DETECTED (Not Detect); Candida glab krusei PCR NOT DETECTED (Not Detect); Trichomonas vaginalis PCR NOT DETECTED (Not Detect)
[2024-03-02 13:26] LABS: CT PCR NOT DETECTED (Not Detect.); NG PCR NOT DETECTED (Not Detect.)
== END 2024-03-02 12:57 | disposition home or self-care (01) ==
PROVIDERS: Nurse Practitioner Family; Emergency Provider Emergency Medicine; PCP Internal Medicine
DX: N30.90 Cystitis, unspecified without hematuria (principal); R30.0 Dysuria
CPT/HCPCS: 0352U; 36415; 74176; 80048; 81003; 81025; 85025; 87491; 87591; 99284

== ENCOUNTER 2024-06-04 13:43 | Outpatient (AMB) | payer OTHER, SELFPAY ==
[2024-06-04 14:03] VITALS: BP 132/66; PULSE 113; RESP 18; TEMP 36.9; O2SAT 99; BMI 28.5
--- NOTE | 2024-06-04 14:03 | A.OFFPC_ITS ---
Vital Signs 06/04/24 14:03 Height 5 ft 5 in Weight 171 lb BMI 28.5 BP 132/66 Blood Pressure Location Rt brachial Respiration 18 Pulse 113 H Pulse Source Pulse Oximeter Temp 98.4 F Temp Source Oral Pulse Oximetry (%) 99 Oxygen Delivery Method Room Air Intake Visit Reasons: increase fatigue/anxiety Intake Note: Pt is here today c/o increase fatigue and anxiety Allergies latex Adverse Reaction (Verified 06/04/24 14:29) Rash Medication List - Last Reconciled 06/04/24 by Afsaneh Coughlin MD cetirizine (Zyrtec) 10 mg PO DAILY PRN medroxyprogesterone (Depo-Provera) 150 mg IM Q12W Tobacco use date assessed: 06/04/24 Dental Screening Dental Screen Date: 06/04/24 Did you have a dental visit in the last 12 months?: No Did you have a dental problem in the last 6 months where you did not have access to dental care?: No Was dental information given to patient?: Patient has dentist HPI increase fatigue/anxiety HPI Details 34-year-old lady here today complaining of increased easy fatigability, and worsening anxiety attacks. Patient was on Lexapro before but has been off it now for several months. Has history of Cyndie's thyroiditis, with hypothyroidism, been lost to follow-up for several years, last TSH and free T4 levels were checked in 2019. - Reports history of increased stress an d anxiety situational depression due to familial and occupational responsibilities. - she also complains of positional verti go, onset last weekend. Symptoms include dizziness and spinning sensations when changing positions, particularly from lying to sitting. 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 Hx of iron deficiency anemia Surgical History No pertinent past surgical history Family History Father Substance use disorder Daughter ADHD Social History Housing: House Unable to assess alcohol history related to: Unknown Alcohol intake: current Alcohol intake frequency: a few times a month Patient Tobacco Use Status: Former Tobacco user Years Smoked: 15 yrs e-Cigarette/Vaping Use: Currently Using Second Hand Smoke Exposure: No service: No Current occupational status: employed Cognitive needs: No Hearing needs: No Vision needs: Yes Questionnaire PHQ-9 Over the last 2 weeks, how often have you been bothered by any of the following problems? 1. Little interest or pleasure in doing things: several days 2. Feeling down, depressed, or hopeless: several days 3. Trouble falling or staying asleep, or sleeping too much: more than half the days 4. Feeling tired or having little energy: nearly every day 5. Poor appetite or overeating: several days 6. Feeling bad about yourself - or that you are a failure or have let yourself or your family down: several days 7. Trouble concentrating on things, such as reading the newspaper or watching television: more than half the days 8. Moving or speaking so slowly that other people could have noticed. Or the opposite - being so fidgety or restless that you have been moving around a lot more than usual: not at all 9. Thoughts that you would be better off or of hurting yourself in some way: not at all Total score: 11 Depression Screening Interpretation: Positive (Restarted escitalopram 10 mg qd and trazodone 50 mg q.h.s. as needed) Depression Screening Follow-up: Existing condition, New Medication prescribed and Community Mental Health Worker F/U Depression Screening Done: Yes Source: Developed by Drs. Travis Haley, Mely Kaplan, Son Newell and colleagues, with an educational miles from [employer]. Thrive Questionnaire Date Thrive assessed: 06/04/24 I am a: Patient What is your living situation today?: I have a steady place to live Within the past 12 months, did the food you bought not last and you didn't have the money to get more?: Never true Within the past 12 months, did you worry whether your food would run out before you got money to buy more?: Never true Do you have trouble paying for medicines?: No Do you have trouble getting transportation to medical appointments?: No Do you have trouble paying your heating and electricity bill?: No Do you have trouble taking care of your child, family member or friend?: No Do you have trouble with day-to-day activities such as bathing, preparing meals, shopping, managing finances, etc.?: No Are you currently unemployed and looking for a job?: No Are you interested in more education?: No Please select the resources that you would like help with: None Currently or been in a relationship where the following occur: No concerns reported THRIVE Score: 0 AUDIT C Alcohol Use Questionnaire (AUDIT-C) 1. How often do you have a drink containing alcohol?: Never Total Score: 0 MAYCO-7 AMB Questionnaire MAYCO-7 Date MAYCO - 7 assessed: 06/04/24 Feeling nervous, anxious, or on edge: 2 = More than half the days Not being able to stop or control worryin = More than half the days Worrying too much about different things: 2 = More than half the days Trouble relaxin = Several days Being so restless that it is hard to sit still: 0 = Not at all Becoming easily annoyed or irritable: 2 = More than half the days Feeling afraid as if something awful might happen: 0 = Not at all Total MAYCO-7 score (0-4 normal; 5-9 mild; 10-14 moderate; 15-21 severe): 9 Source: Developed by Drs. Travis Haley, Mely Kaplan, Son Newell and colleagues, with an educational miles from [employer]. MAYCO-7 Assessment Billing MAYCO-7 Assessment Tool: MAYCO-7 Assessment 80866 Review of Systems Const All systems reviewed & are unremarkable except as noted in HPI and below Physical exam (Primary Care) Vital Signs: Last Vital Signs Temp 98.4 F 06/04/24 14:03 Pulse 113 H 06/04/24 14:03 Resp 18 06/04/24 14:03 BP 132/66 06/04/24 14:03 Pulse Ox 99 06/04/24 14:03 Oxygen Delivery Method Room Air 06/04/24 14:03 BMI result Body Mass Index 28.5 Tobacco/Smoking Status: Tobacco use Status Tobacco use date assessed 06/04/24 06/04/24 14:06 Patient Tobacco Use Status Former Tobacco user 06/04/24 14:06 e-Cigarette/Vaping Use Currently Using 06/04/24 14:09 PHQ-9: PHQ-9 Score PHQ-9: Total score 11 06/04/24 14:46 Depression Screening Interpretation: Positive (Restarted escitalopram 10 mg qd and trazodone 50 mg q.h.s. as needed) Depression Screening Follow-up: Existing condition, New Medication prescribed and Community Mental Health Worker F/U Thrive Assessment: Date of Thrive Assessment Date Thrive assessed 06/04/24 06/04/24 14:13 Currently or been in a relationship where the following occur: No concerns reported Const General: comfortable and no acute distress Orientation/consciousness: patient oriented x3 Eyes General: appearance normal, both eyes and all related structures Pupils: Equal, round and reactive pupils present EOM: EOMs intact bilaterally Neck Neck: Yes full ROM, Yes no lymphadenopathy and Yes supple Resp Effort & Inspection: normal respiratory effort and able to speak in complete sentences Auscultation: clear to auscultation bilaterally Cardio Rate: regular rate Rhythm: regular rhythm Heart sounds: S1 normal heart sound present and S2 normal heart sound present GI Inspection: Yes normal to inspection Palpation (GI): Soft to palpation, Firmness to palpation present (GI), nontender and no masses Auscultation: normal bowel sounds Neuro General: patient oriented x3, gait normal, tone normal, moves all extremities, Normal light touch and pain sensation and no focal motor deficits Cranial nerves: Yes Equal, round and reactive pupils present Cognition (Neuro): normal cognition Gait exam (Neuro): Normal gait present Motor exam (neuro): 5/5 motor strength present throughout Psych Appearance: grossly normal Mental Status: mental status grossly normal Speech and movement: Normal speech and movement present Affect: normal affect Attitude: cooperative Thought process: Normal thought process present Thought content: Normal thought content present Results Reviewed Results Reviewed: Name: Nimo Ignacio Age/Sex: 33/F : 1990 Unit#: [id number] Attend Dr: Elbert Ramos MD Re03/02/24 Status: DEP ER Location: [facility] Disch: SPEC : [id number] DESIREE: 03/02/24 STATUS: COMP REQ : [id number] RECD: 11/09/24-[address]: Kimberly Pal TESTER EQUIPMENT COMP: 03/02/24-1112 ENTERED: 03/02/[address]: Afsaneh Coughlin MD ORDERED: CBC Auto Diff Test Result Flag Reference WBC 4.3 L 4.8-10.8 X10*3/uL RBC 4.27 4.20-5.50 X10*6/uL HGB 12.4 12.0-16.0 g/dl HCT 36.2 L 37.0-47.0 % MCV 84.8 80.0-98.0 fL MCH 29.0 27.0-33.0 pg MCHC 34.3 31.0-35.0 g/dl RDW 12.6 11.0-16.0 % PLT 300 160-400 X10*3/uL MPV 9.7 9.4-12.3 fL Neut Pct Auto 61.9 45-73 % ImGran Pct Auto 0.0 0.0-0.4 % Lymp Pct Auto 27.3 20-40 % [place] Pct Auto 8.3 2-11 % Eos Pct Auto 1.8 0-4 % Baso Pct Auto 0.7 0-2 % NRBC Pct Auto 0.0 0.0-0.2 /100WBC ANC Neut Abs # 2.7 2.0-8.3 x10*3/uL ImGran Abs Auto 0.00 0.00-0.03 X10*3/uL Lymph Abs Auto 1.2 1.2-4.9 X10*3/uL [place] Abs Auto 0.4 0.1-1.2 X10*3/uL Eos Abs Auto 0.1 0.0-0.4 X10*3/uL Baso Abs Auto 0.0 0.0-0.2 X10*3/uL NRBC Abs Auto 0.000 0.0-0.012 X10*3/uL Name: Nimo Ignacio Age/Sex: 33/F : 1990 Unit#: [id number] Attend Dr: Elbert Ramos MD Re03/02/24 Status: DEP ER Location: .ED Disch: SPEC : [id number] DESIREE: 03/02/24 STATUS: COMP REQ : [id number] RECD: 03/02/[address] [facility] [address]: Kimberly Pal NP COMP: 03/02/24-1150 ENTERED: 03/02/24-[address] [facility] [address]: Afsaneh Coughlin MD ORDERED: BMP Test Result Flag Reference Sodium 141 135-145 mmol/L Potassium 4.3 3.3-5.1 mmol/L CL 112 H 96-108 mmol/L CO2 20 L 22-29 mmol/L Gap 13 12-20 BUN 6 L 9-16 mg/dL Creat 0.85 0.5-1.4 mg/dL Estimated CrCl 94.1 Provided height and weight: 165.1 cm, 74.3 kg. eGFR (calculated from the MDRD study equation) and eCrCl (calculated from the Cockcroft-Gault equation) are based on different parameters and may not yield comparable results. If eCrCl result is absurd, please check patient's height/weight. EGFR > 60 NOTE: For -Aust[place] individuals, multiply the result by 1.210. 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 E03.8; E06.3 Generalized anxiety disorder F41.1 Intermittent palpitations R00.2 Depression with anxiety F41.8 Benign paroxysmal positional vertigo, unspecified laterality H81.10 Laterality: unspecified laterality Additional Codes MAYCO-7 Assessment Billing - MAYCO-7 Assessment Tool: MAYCO-7 Assessment 32661 ([id number]) Assessment & Plan Assessment & Plan (1) Hx of iron deficiency anemia: Code(s): Z86.2 - Personal history of diseases of the blood and blood-forming organs and certain disorders involving the immune mechanism Category: Medical Plan: Repeat CBC (2) 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 (4) Intermittent palpitations: Code(s): R00.2 - Palpitations Category: Medical Plan: EKG done today showed presence of sinus tachycardia. Labs ordered to check TSH free T4 and thyroid peroxidase antibody as well as CBC (5) Depression with anxiety: Code(s): F41.8 - Other specified anxiety disorders Category: Medical Plan: Started back on escitalopram 10 mg taken once a day in a.m. and prescription also given for trazodone 50 mg to take 1 tablet at bedtime as needed for difficulty sleeping. Referred to maxi Jimenez at [facility] [place] for further evaluation and management (6) Benign paroxysmal positional vertigo: Code(s): H81.10 - Benign paroxysmal vertigo, unspecified ear Qualifiers: Laterality: unspecified laterality Qualified Code(s): H81.10 - Benign paroxysmal vertigo, unspecified ear Plan: Referred to physical therapy-vestibular rehab program to evaluate and treat possible benign positional vertigo Orders: Orders Thyroid Stimulating Hormone 06/04/24 E03.8 - Other specified hypothyroidism, E06.3 - Autoimmune thyroiditis, F41.1 - Generalized anxiety disorder, R00.2 - Palpitations, R53.83 - Other fatigue, Z86.2 - Personal history of diseases of the blood and blood-forming organs and certain disorders involving the immune mechanism Free T4 (Free Thyroxine) 06/04/24 E03.8 - Other specified hypothyroidism, E06.3 - Autoimmune thyroiditis, F41.1 - Generalized anxiety disorder, R00.2 - Palpitations, R53.83 - Other fatigue, Z86.2 - Personal history of diseases of the blood and blood-forming organs and certain disorders involving the immune mechanism Vitamin D 25-OH Total 06/04/24 E03.8 - Other specified hypothyroidism, E06.3 - Autoimmune thyroiditis, F41.1 - Generalized anxiety disorder, R00.2 - Palpitations, R53.83 - Other fatigue, Z86.2 - Personal history of diseases of th e blood and blood-forming organs and certain disorders involving the immune mechanism AMB EKG-In Office 06/04/24 R00.2 - Palpitations, R53.83 - Other fatigue Thyroid Peroxidase Antibodies 06/04/24 E03.8 - Other specified hypothyroidism, E06.3 - Autoimmune thyroiditis, F41.1 - Generalized anxiety disorder, R00.2 - Palpitations, R53.83 - Other fatigue, Z86.2 - Personal history of diseases of the blood and blood-forming organs and certain disorders involving the immune mechanism Complete Blood Count Auto Diff 06/04/24 E03.8 - Other specified hypothyroidism, E06.3 - Autoimmune thyroiditis, F41.1 - Generalized anxiety disorder, R00.2 - Palpitations, R53.83 - Other fatigue, Z86.2 - Personal history of diseases of th e blood and blood-forming organs and certain disorders involving the immune mechanism Basic Metabolic Panel Fasting 06/04/24 E03.8 - Other specified hypothyroidism, E06.3 - Autoimmune thyroiditis, F41.1 - Generalized anxiety disorder, R00.2 - Palpitations, R53.83 - Other fatigue, Z86.2 - Personal history of diseases of the blood and blood-forming organs and certain disorders involving the immune mechanism Alanine Aminotransferase 06/04/24 E03.8 - Other specified hypothyroidism, E06.3 - Autoimmune thyroiditis, F41.1 - Generalized anxiety disorder, R00.2 - Palpitations, R53.83 - Other fatigue, Z86.2 - Personal history of diseases of the blood and blood-forming organs and certain disorders involving the immune mechanism Aspartate Amino Transferase 06/04/24 E03.8 - Other specified hypothyroidism, E06.3 - Autoimmune thyroiditis, F41.1 - Generalized anxiety disorder, R00.2 - Palpitations, R53.83 - Other fatigue, Z86.2 - Personal history of diseases of the blood and blood-forming organs and certain disorders involving the immune mechanism PT Evaluation and Treatment 06/04/24 H81.10 - Benign paroxysmal vertigo, unspecified ear Referrals Psychiatry Referral F41.1 - Generalized anxiety disorder, F41.8 - Other specified anxiety disorders, F90.0 - Attention-deficit hyperactivity disorder, predominantly inattentive type Medications: New escitalopram oxalate 10 mg PO DAILY 30 tabs 1RF F41.8 - Other specified anxiety disorders trazodone 50 mg PO BEDTIME PRN 30 tabs 0RF sleep
--- OUTSIDE RECORDS SUMMARY | 2024-06-04 14:43 | XMS_ITS | Clinical Summary ---
Author Organization [facility] Address [address] [place] [address] Care Team Providers Care Shell Fisherman Name Role Phone Katie Eng METAL [employer]ER-Yuri Primary Care Provider [phone] Source Comments PLEASE NOTE, if this patient is a minor, it may be UNLAWFUL to discuss sensitive information that is contained in these records (such as FAMILY PLANNING, MENTAL HEALTH or SUBSTANCE ABUSE) with the minor patient's parent or other person without the patient's specific authorization.[facility] Allergies Active Allergy Reactions Criticality Noted Date Comments Latex 10/20/2023 Medications cetirizine (ZYRTEC) 10 mg tablet Take 10 mg by mouth 4 Active nicotine, polacrilex, (NICORETTE) 2 mg gumIndications:Va pes nicotine containing substance as needed for cravings - Weeks 1-6: Chew 1 piece of gum every 1-2 hours. Weeks 7-9: Chew 1 piece of gum every 2-4 hours. Weeks 10-12: Chew 1 piece of gum every 4-8 hours. (minimum: 9 pieces/day for first 6 weeks; maximum: 24 pieces/day during entire regimen 110 Each 3 4 Active psyllium seed, with dextrose, (METAMUCIL) powderIndications :Irritable bowel syndrome with both constipation and diarrhea Take 3 g of fiber by mouth once daily 368 g 4 Active Active Problems Problem Noted Date Diagnosed Date Family history of Crohn's disease 10/20/2023 Irritable bowel syndrome wit h both constipation and diarrhea 10/20/2023 Attention deficit hyperactivity disorder (ADHD) 10/20/2023 MAYCO (generalized anxiety disorder) 10/20/2023 Vapes nicotine containing substance 10/20/2023 Immunizations Name Administration Dates Next Due Flu, Cell Culture based, Mul ti Dose, 6m+, Flucelvax 03/09/2021 Flu, Multi Dose 0.5 ML 01/24/2019,01/11/2018 Flu, Preservative Free 01/02/2020 HPV, QUADRIVALENT 04/21/2015, 3,05/02/2012,2011 INFLUENZA, SEASONAL, INJECTABLE 04/12/2011 TDAP 11/15/2016,11/30/2011 Family History Medical History Relation Name Comments Alcoholism Father Heart attack Father Crohn's Disease Maternal Grandmother Crohn's Disease Mother Heart Disease Paternal Grandmother Relation Name Status Comments Father Maternal Grandmother Mother Paternal Grandmother Social History Tobacco Use Types Packs/Day Years Used Date Smoking Tobacco: Never Smokeless Tobacco: Never Tobacco Cessation:Counseling Given: Yes Alcohol Use Standard Drinks/Week Comments Never 0 (1 standard drink = 0.6 oz pur e alcohol) Social Connections Answer Date Recorded Connectedness 0 01/07/2024 Financial Resource Strain Answer Date R ecorded Financial Resource Strain 0 2022 Stress Answer Date Recorded Stress 0 03/09/2023 Physical Activity Answer Date Recorded Physical Activity 0 03/09/2023 Food Insecurity Answer Date Recorded Food 0 01/18/2024 Transportation Needs Answer Date Record ed Transportation 0 03/09/2023 Housing Stability Answer Date Recorded Housing 0 03/09/2023 Safety and Environment Answer Date Mariusz rded Safety 0 03/09/2023 Utilities Answer Date Recorded Utilities 0 03/09/2023 Employment Answer Date Recorded Stress 0 01/07/2024 Comments No Sex and Gender Information Value Date Recorded Sex Assigned at Female 10/20/2023 9:24 AM PDT Legal Sex Female 7:55 AM PDT Gender Identity Female 10/20/2023 9:24 AM PDT Sexual Orientation Straight 10/20/2023 9: 24 AM PDT Last Filed Vital Signs Vital Sign Reading Time Taken Comments Blood Pressure 104/76 10/20/2023 10:15 AM EDT Pulse 95 10/20/2023 10:15 AM EDT Temperature 37.1 ??C (98.7 ??F) 10/20/2023 10:15 AM E DT Respiratory Rate 16 10/20/2023 10:15 AM EDT Oxygen Saturation - - Inhaled Oxygen Concentration - - Weight 74.9 kg (165 lb 3.2 oz) 10/20/2023 10:15 AM EDT Height 165.1 cm (5' 5 ) 10/20/2023 10:15 AM EDT Body Mass Index 27.49 10/20/2023 10:15 AM EDT Plan of Treatment Health Maintenance Due Date Last Done Comments Dental Prophy 1989 Diabetes Screening 1989 HPV Screening 1989 Hepatitis C Screening 1989 Pap + HPV 1989 HIV Screening 2004 Relationship Safety Screening/Counseling 2004 Imm-Hepatitis B (1 of 3 - 19 + 3-dose series) 2008 Cervical Cancer Screening 2010 Pap Smear 2010 [id number] () 12/24/2023 04/01/2021, 08/19/2020, 07/22/2020 Imm-Influenza (#1) 2023 03/09/2021, 0 01/02/2020, 01/24/2019, Additional history exists Depression Monitoring 01/20/2024 10/20/2023 Alcohol and Drug Screen 04/24/2024 10/20/2023 Dental BW 09/16/2024 09/15/2023 Dental Examination 09/16/2024 09/15/2023 Dental Perio Charting 09/16/2024 09/15/2023 Annual Preventive Care Visit 10/19/2024 10/20/2023 Hypertension Screening (#1) 10/19/2024 Tobacco Cessation Counseling (#1) 10/19/2024 024 Tobacco Screening 10/19/2024 10/20/2023 Imm-DTaP/Tdap/Td (3 - Td or Tdap) 11/15/2026 017, 11/30/2011 Dental FMX/Pano 09/16/2028 09/15/2023 Cervical Ablation/Cold-Knife Conization Discontinued Cervical Cryotherapy Discontinued Colposcopy Discontinued Endometrial Biopsy Discontinued Excision/Leep Discontinued HPV Genotyping Discontinued Vaginal Pap Discontinued Vulvoscopy Discontinued Procedures Procedure Name Priority Date/Time Associated Diagnosis Comments Full INTRAORAL - COMP SERIES OF RADIOGRAPHIC IMAGES Routine 09/15/2023 2:20 PM EDT Caries Full COMP ORAL EVALUATION - NEW/ESTABLISHED PATIENT Routine 09/15/2023 2:20 PM EDT Caries from Last 3 Months or Most Recently Relevant to Health Maintenance Insurance [place] D[place] [address] [employer] Care Teams Shell Fisherman Relationship Specialty Start Date End Date Katie Eng FNP-C [address] [place] [address] PCP - General Internal Medicine 07/11/23
--- OUTSIDE RECORDS SUMMARY | 2024-06-04 14:43 | XMS_ITS | Clinical Summary ---
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:Blood cl ots in brain; COMMENT: age 8 after a fall down the stairs Anemia DX:Anemia; COMME NT: in childhood Family History Medical History Relation Name Comments Heart attack Father Lung cancer Maternal Grandmother COPD Crohn's disease Mother Lung cancer Paternal Grandfather throat cancer COPD Paternal Grandmother Relation Name Status Comments Father Maternal Grandmother Mother Alive Paternal Grandfather Paternal Grandmother Social History Tobacco Use Types Packs/Day Years Used Date Smoking Tobacco: Every Day Cigarettes Smokeless Tobacco: Never Alcohol Use Standard Drinks/Week Comments No 0 (1 standard drink = 0.6 oz pur e alcohol) Comments Unknown Sex and Gender Information Value Date Recorded Sex Assigned at Not on file Legal Sex Female 7:31 PM EST Gender Identity Not on file Sexual Orientation Not on file Obstetrics History Plan of Treatment Health Maintenance Due Date Last Done Comments Pneumococcal Vaccine: Pediat rics (0 to 5 Years) and At-Risk Patients (6 to 64 Years) (1 of 2 - PCV) 1995 Hepatitis B Vaccines (1 of 3 - 19+ 3-dose series) 2008 Cervical Cancer Screening: P ap Smear 2010 Depression Screening 03/26/2022 HIV Screening 03/26/2022 Hepatitis C Screening 03/26/2022 Social Influencers of Health Screening 03/26/2022 COVID-19 Vaccine (1 - 2023-2 5 season) 2023 Influenza Vaccine (#1) 2023 02/10/2017 DTaP,Tdap,and Td Vaccines (2 - Td or Tdap) 11/15/2026 11/15/2016 HIB Vaccines Aged Out No longer eligi ble based on patient's age to complete this topic HPV Vaccines Aged Out No longer eligi ble based on patient's age to complete this topic Hepatitis A Vaccines Aged Out No long er eligible based on patient's age to complete this topic IPV Vaccines Aged Out No longer eligi ble based on patient's age to complete this topic MMR Vaccines Aged Out No longer eligi ble based on patient's age to complete this topic Meningococcal ACWY Vaccine Aged Out N o longer eligible based on patient's age to complete this topic RSV Immunization Patients Un chris 20 months Aged Out No longer eligible b ased on patient's age to complete this topic Varicella Vaccines Aged Out No longer eligible based on patient's age to complete this topic Care Teams Supervisor Rides Relationship Specialty Start Date End Date Thi Mc MD [address] [place] [address] PCP - General Internal Medicine 08/04/17
== END 2024-06-04 15:20 | disposition home or self-care (01) ==
PROVIDERS: PCP Internal Medicine; Visit Provider Internal Medicine
DX: Z86.2 Personal history of diseases of the blood and blood-forming organs and certain disorders involving the immune mechanism (principal); E03.8 Other specified hypothyroidism; E06.3 Autoimmune thyroiditis; F41.1 Generalized anxiety disorder; R00.2 Palpitations; F41.8 Other specified anxiety disorders; H81.10 Benign paroxysmal vertigo, unspecified ear

== ENCOUNTER → 2024-06-04 13:43 | Outpatient (BNVA) | payer OTHER, SELFPAY | PROVIDERS: PCP Internal Medicine; Visit Provider Internal Medicine | DX: F41.1 Generalized anxiety disorder (principal); R00.2 Palpitations; F41.8 Other specified anxiety disorders; H81.10 Benign paroxysmal vertigo, unspecified ear; E03.8 Other specified hypothyroidism; E06.3 Autoimmune thyroiditis; Z86.2 Personal history of diseases of the blood and blood-forming organs and certain disorders involving the immune mechanism | CPT/HCPCS: 96127; 99212 ==

== ENCOUNTER 2024-06-11 09:26 | Outpatient (REF) | payer OTHER, SELFPAY ==
--- OUTSIDE RECORDS SUMMARY | 2024-06-11 10:13 | XMS_ITS | Clinical Summary ---
Author Organization [facility] Address [address] [place] [address] Care Team Providers Care Bottle Washer Name Role Phone Katie Eng PERINATAL INSTRUCTOR-Yuri Primary Care Provider [phone] Source Comments PLEASE NOTE, if this patient [...] Cervical Cancer Screening 2010 Pap Smear 2010 [id number] () 12/24/2023 04/01/2021, 08/19/2020, 07/22/2020 Imm-Influenza (#1) [...] Most Recently Relevant to Health Maintenance Insurance [place] [address] [facility] Medicaid Address: [facility] [id number] [place] [address] Care Teams Bottle Washer Relationship Specialty Start Date End Date Katie Eng FNP-C [address] [place] [address] PCP - General Internal Medicine 07/11/23
--- OUTSIDE RECORDS SUMMARY | 2024-06-11 10:13 | XMS_ITS | Clinical Summary ---
Author Organization [facility] Address [id number] [place] [id number] Care Team Providers Care Automation Machine Operator Name Role Phone Thi Mc MD Primary [...] Health Maintenance Due Date Last Done Comments Hepatitis B Vaccines (1 of 3 - 19+ 3-dose series) 2008 Pneumococcal Vaccine: Pediat rics (0 to 5 Years) and At-Risk Patients (6 to 64 Years) (1 of 2 - PCV) 2008 Cervical Cancer Screening: P ap Smear 2010 Depression Screening 03/26/2022 HIV Screening 03/26/2022 Hepatitis C Screening 03/26/2022 Social Influencers of Health Screening 03/26/2022 COVID-19 Vaccine ( - 2023-2 5 season) 2023 Influenza Vaccine [...] patient's age to complete this topic Meningococcal B Vacine Aged Out No lo nger eligible based on patient's age to complete this topic RSV Immunization Patients Un chris 20 months Aged Out No longer eligible b ased on patient's age to complete this topic Varicella Vaccines Aged Out No longer eligible based on patient's age to complete this topic Care Teams Automation Machine Operator Relationship Specialty Start Date End Date Thi Mc MD [address] [place] [id number] PCP - General Internal Medicine 08/04/17
[2024-06-11 13:02] LABS: MANUAL DIFF FLAG NO
[2024-06-11 13:14] LABS: Basophils Absolute Auto 0.1 X10*3/uL (0.0-0.2); Eosinophils Absolute Auto 0.2 X10*3/uL (0.0-0.4); Eosinophils Percent Auto 2.9 % (0-4); Hematocrit 30.7 % (37.0-47.0); Hemoglobin 9.7 g/dl (12.0-16.0); Imm Gran Abs Auto 0.01 X10*3/uL (0.00-0.03); Imm Gran Pct Auto 0.2 % (0.0-0.4); Lymphocytes Absolute Auto 1.5 X10*3/uL (1.2-4.9); Lymphocytes Percent Auto 28.8 % (20-40); Mean Corpuscular HGB Conc 31.6 g/dl (31.0-35.0); Mean Corpuscular Hemoglobin 24.9 pg (27.0-33.0); Mean Corpuscular Volume 78.9 fL (80.0-98.0); Monocytes Absolute Auto 0.4 X10*3/uL (0.1-1.2); Monocytes Percent Auto 8.5 % (2-11); Neutrophils Absolute Auto 3.1 x10*3/uL (2.0-8.3); Neutrophils Percent Auto 58.6 % (45-73); Platelet Count 466 X10*3/uL (160-400); Red Blood Count 3.89 X10*6/uL (4.20-5.50); Red Cell Distribution Width 13.9 % (11.0-16.0); White Blood Count 5.2 X10*3/uL (4.8-10.8)
[2024-06-11 13:37] LABS: Alanine Aminotransferase 7 U/L (0-31); Anion Gap 12 (12-20); Aspartate Amino Transferase 20 U/L (5-31); Blood Urea Nitrogen 9 mg/dL (9-16); Carbon Dioxide 23 mmol/L (22-29); Chloride 108 mmol/L (96-108); Estimated Glomerular Filt Rate > 60; Glucose Fasting 80 mg/dL (60-99); Potassium 3.9 mmol/L (3.3-5.1); Sodium 139 mmol/L (135-145)
[2024-06-11 13:43] LABS: Free T4 (Free Thyroxine) 1.03 ng/dL (0.71-1.85); Thyroid Stimulating Hormone 1.68 uIU/mL (0.32-4.0)
[2024-06-12 09:18] LABS: Thyroid Peroxidase Antibodies 214 IU/mL (<9)
== END 2024-06-11 09:27 | disposition home or self-care (01) ==
LOC: HO.HMGCLDS 09:26
PROVIDERS: PCP Internal Medicine; Visit Provider Internal Medicine
DX: R53.83 Other fatigue (principal); R00.2 Palpitations; F41.1 Generalized anxiety disorder; E06.3 Autoimmune thyroiditis; E03.8 Other specified hypothyroidism; Z86.2 Personal history of diseases of the blood and blood-forming organs and certain disorders involving the immune mechanism
CPT/HCPCS: 36415; 80048; 82306; 84439; 84443; 84450; 84460; 85025; 86376

== ENCOUNTER 2024-06-21 14:00 | Outpatient (RCR) | payer OTHER, SELFPAY ==
[2024-06-19 14:04] VITALS: BP 124/80; PULSE 101; O2SAT 98
--- NOTE | 2024-06-19 14:48 | MHC.PT.EP ---
[facility] [place] Office [place] Office [place] Office [address] Pepito Hopson [address] [phone] F: [phone] F: [phone] F: [phone] F: [phone] Physical Therapy Plan of Care Date of Evaluation: 06/19/24 Date of Surgery: Diagnosis: This is a 24 yo female presenting to skilled PT with a script for vertigo. Assessment: This is a 24 yo female presenting to skilled PT with a script for vertigo. Patient reports dizziness when looking up, bending down and turning to the R. Symptoms have been ongoing for 2 weeks. This has never happened to her before. States that symptoms happen every day. Symptoms are described as room spinning and last for no more than 20 sec. Examination shows + oculomotor tests with saccades, (-) VBI B, and normal cervical AROM. She was (+) for BPPV with kenya-hallpike for the L and jonnathan maneuver which was improved s/p tx. Balance was reported normal but not formally tested at this time. S/S consistent with L PC BPPV and she would benefit from PT 2x/wk for 4wks to address impairments, implement HEP and optimize functional mobility. Frequency and Duration: The patient will be seen 2x/wk for 4wks Short Term Goals: reassess canals balance Lamination Machine Operator Goals: I in HEP Negative in all 6 canals for dizziness and nystagmus Return to normal gait pattern without reports fo LOB due to dizziness Treatment Plan: Modalities to reduce pain, spasms and effusion. Manual therapy to restore motion and function. Therapeutic exercise to improve strength and flexibility. Neuromuscular re-education for posture and balance. Therapeutic activities to return to functional activities of daily living. Electronically signed by: Shandra Bridges PT Please sign and return to therapist. Thank you for your referral.
--- NOTE | 2024-07-22 10:58 | MHC.PT.DC ---
[facility] [place] Office [place] Office [place] Office [address] Pepito Hopson [address] [phone] F: [phone] F: [phone] F: [phone] F: [phone] Physical Therapy Discharge Report Diagnosis: This is a 24 yo female presenting to skilled PT with a script for vertigo. Date of Surgery: Date of Evaluation: 06/19/24 Date of Discharge: 07/22/24 Treatments to Date: 2 Cancellations to Date: 0 No Shows to Date: 0 Discharge Status: Achieved Goals Improved Function Independent with HEP Discharge Summary: 06/21: Patient was clear in all 6 canals today. I educated her to call our office if symptoms return. At this point she has not had any symptoms since I saw her last. Her balance was normal. Close chart in 30 days if patient does not return. Electronically signed by: Shandra Bridges PT Please sign and return to therapist. Thank you for your referral.
== END 2024-07-22 10:58 | disposition home or self-care (01) ==
LOC: HO.PTCHIC 14:00
PROVIDERS: PCP Internal Medicine; Visit Provider Internal Medicine
DX: H81.10 Benign paroxysmal vertigo, unspecified ear (principal)
CPT/HCPCS: 95992; 97110; 97161; 97162